=== PATIENT | female | born 1965 | race Caucasian/White ===

== ENCOUNTER → 2023-12-15 | Outpatient (CLI) | payer BC, SELFPAY ==
[2023-12-15 16:10] LABS: Absolute Lymphocyte Count 1.64 X10^3/uL (0.83-4.51); Absolute Neutrophil Count 4.1 X10^3/uL (2.0-7.7); Basophil# 0.03 X10^3/uL; Basophil% 0.5 % (0-1); Eosinophil# 0.05 X10^3/uL; Eosinophils% 0.8 % (0-5); Hematocrit 42.8 % (37-47); Hemoglobin 13.8 g/dL (12.0-15.0); Lymphocyte # 1.64 X10^3/ul (0.83-4.51); Lymphocyte % 26.2 % (19-41); Mean Corp Hgb Conc 32.2 g/dL (32-36); Mean Corpuscular Hgb 29.6 pg (27.0-32.0); Mean Corpuscular Volume 91.8 fL (81-99); Mean Platelet Vol. 10.4 fl (6.2-12.0); Monocyte# 0.46 X10^3/uL; Monocyte% 7.3 % (0-10); NRBC Flagged by Analyzer 0 % (0-5); Neutrophil # 4.05 X10^3/uL (2.7-7.7); Neutrophil % 64.7 % (47-70); Platelet Count 384 K/mm3 (150-450); RBC Distribution Width CV 13.5 % (11.6-14.6); RBC Distribution Width SD 45.8 fl (35.1-43.9); Red Blood Count 4.66 M/mm3 (4.2-5.4); White Blood Count 6.3 K/mm3 (4.4-11.0)
[2023-12-15 16:32] LABS: ALB/GLOB Ratio 1.3 RATIO (0.9-2.4); AST(SGOT) 17 U/L (15-37); Alanine Aminotransfer ALT/SGPT 22 U/L (13-56); Albumin, Serum 4.6 g/dL (3.2-5.0); Alkaline Phosphatase 77 U/L (45-117); Anion Gap 6 (5-15); BUN 16 mg/dL (7-18); BUN/Creat Ratio 22.6 RATIO (10-20); Calcium,Total 9.5 mg/dL (8.5-10.1); Chloride 104 mmol/L (98-107); Cholesterol 319 mg/dL (200); Creatinine, Serum 0.71 mg/dL (0.55-1.02); EST Glomerular Filtration Rate 89 mL/min (>60); Est Glom Filt Rate - Afr Amer 108 mL/min (>60); Estradiol 14.5 pg/mL; Ferritin 60 ng/mL (8-252); Free T3 2.9 pg/mL (2.18-3.98); Globulin 3.5 g/dL (2.2-4.2); Glucose 110 mg/dL (74-106); High Density Lipoprotein 83 mg/dL; Iron 116 ug/dL (50-170); Potassium 4.1 mmol/L (3.5-5.1); Protein, Total 8.1 g/dL (6.4-8.2); Sodium Level 140 mmol/L (136-145); T4 Free Direct 1.05 ng/dL (0.76-1.46); Thyroid Stim Hormone (TSH) 4.02 uIU/mL (0.358-3.74); Triglycerides 168 mg/dL; Very Low Density Lipoprotein 34 mg/dL (5-40)
[2023-12-15 16:51] LABS: Hemoglobin A1c 5.5 % (3.8-5.6)
[2023-12-15 17:40] LABS: Progesterone Level < 0.21 ng/mL (See Comment)
[2023-12-18 13:07] LABS: ANTINUCLEAR ANTIBODIES DIRECT Negative (Negative)
[2023-12-19 09:09] LABS: Anti-Thyroglobulin AB < 1.0 IU/mL (0.0-0.9); DHEA Sulfate 89.3 ug/dL (29.4-220.5); Thyroglobulin, Serum Qt. 26.6 ng/mL (1.5-38.5); Thyroid Peroxidase AB 11 IU/mL (0-34)
== END | disposition home or self-care (01) ==
LOC: LABSPEC 15:26
PROVIDERS: Referring Provider Nurse Practitioner Family; Visit Provider Nurse Practitioner Family
DX: R53.82 Chronic fatigue, unspecified (principal); N95.9 Unspecified menopausal and perimenopausal disorder; R10.9 Unspecified abdominal pain; R06.00 Dyspnea, unspecified; L65.9 Nonscarring hair loss, unspecified; L40.9 Psoriasis, unspecified
CPT/HCPCS: 80053; 80061; 82627; 82670; 82728; 83036; 83540; 84144; 84403; 84432; 84439; 84443; 84481; 85025; 86038; 86225; 86235; 86376; 86800; 82626